=== PATIENT | male | born 1930 | race Caucasian/White ===

== ENCOUNTER → 2016-08-18 | Day surgery (SDC) | payer OTHER ==
[~2016-08-18] MED LIST: DEXAMETHASONE SOD PHOS 4 MG/ML VIAL ONE; EPINEPHrine HCL (1:1000) 1 MG/ML VIAL ONE; LACTATED RINGER'S 1000 ML INJ 1,000 ML ONE; MIDAZOLAM HCL 2 MG/2 ML VIAL ONE; MOXIFLOXACIN 0.5% OPHT SOLN 3 ML BTL ONE; ONDANSETRON HCL 4 MG/2 ML VIAL IV PUSH ONE; PHENYLEPHRINE HCL 10% OPTH SOLN 5 ML BTL ONE; PROPOFOL 200 MG/20 ML AMP IV ONE; SODIUM CHLORIDE 0.9% INJ 10 ML ONE; TETRACAINE 0.5% OPTH SOLN 4 ML BTL ONE; TOBRAMYCIN/DEXAMETHASONE OPTH OINT 3.5 GM TUBE ONE; ceFAZolin INJ 1,000 MG VIAL ONE; prednisoLONE ACETATE 1% OPHT SUSP 5 ML BTL ONE
--- NOTE | 2016-08-21 13:00 | MP ---
cc: ALEXANDRA MASCORRO MD DATE OF SURGERY 08/20/2016 POSTOPERATIVE DIAGNOSIS Full-thickness macular hole left eye. PROCEDURE Pars vitrectomy, macular hole closure, removal of internal limiting membrane, endolaser, insertion of 20% SF6 gas left eye. COMPLICATIONS None BLOOD LOSS Less than [address] Latif, general INDICATIONS FOR THE PROCEDURE This patient presented with a full-thickness macular hole with significantly decreased visual acuity of his left eye. The patient elected for surgical correction at this time point. PROCEDURE NOTE After informed consent was obtained, the patient was brought to the operating room, general anesthesia was established. A three port pars plana vitrectomy was established with a self-retaining infusion cannula. Core vitreous was evacuated and posterior vitreous detachment created. The ILM was highlighted with ICG and removed with ILM forceps. The scleral depression examination revealed superior and inferior retina defects which were treated with endolaser. Air-fluid exchange was carried out, macular hole noted to be closed. 20% SF6 gas was instilled. Trocars removed and sclerotomies closed. Subconjunctival injection of Ancef and dexamethasone were given. The eye was patched with Maxitrol ointment. The patient will maintain a prone position and continue followup with [facility] for his postoperative care. MD AYDIN Chappell/KIKI /5:54 PM /12:52 PM
== END | disposition home or self-care (01) ==
LOC: ESDC 06:34
PROVIDERS: ATTEND Ophthalmology
DX: H35.342 Macular cyst, hole, or pseudohole, left eye (principal)
CPT/HCPCS: 00145; 67043; J0171; J0690; J1100; J2250; J2405; J3010; J7120